=== PATIENT | male | born 1985 | race Caucasian/White ===

== ENCOUNTER 2017-08-01 18:36 | Emergency (ER) | payer MEDICAID ==
[2017-08-01] MEDS: LIDOCAINE 1% (MDV) 10 ML INJ INFIL (20:23)
[2017-08-01] MEDS: DIPHTH/TET/ACEL PERTUSS (ADULT) 0.5 ML VIAL IM* (20:23)
== END 2017-08-01 22:20 | disposition home or self-care (01) ==
LOC: FTE 18:36
DX: S61.411A Laceration without foreign body of right hand, initial encounter (principal); W26.8XXA Contact with other sharp object(s), not elsewhere classified, initial encounter; Y92.9 Unspecified place or not applicable; Z23 Encounter for immunization
CPT/HCPCS: 12002; 73130-RT; 90471; 90715; 99283-25

== ENCOUNTER 2017-08-04 10:17 | Emergency (ER) | payer MEDICAID | END 2017-08-04 10:43 | disposition home or self-care (01) | LOC: E/R 10:17 | DX: Z48.01 Encounter for change or removal of surgical wound dressing (principal); S61.411D Laceration without foreign body of right hand, subsequent encounter; W26.8XXD Contact with other sharp object(s), not elsewhere classified, subsequent encounter; Y92.9 Unspecified place or not applicable | CPT/HCPCS: 99281; Z7502 ==